=== PATIENT | female | born 1975 | race American Indian/Alaskan Native ===

== ENCOUNTER 2018-10-27 21:01 | Emergency (ER) | payer SELFPAY ==
--- NOTE | 2018-10-27 21:35 | Event Note ---
ED Screening Note ED Screening Note: pt states her blood sugar was reading over 500 states she left her insulin at a rest stop, has not had any medicine since yesterday states she turned around and that the bag was gone also not taking her blood pressure medicine states she feels lightheaded, dizziness BG 480 This initial assessment/diagnostic orders/clinical plan/treatment(s) is/are subject to change based on patients health status, clinical progression and re- assessment by fellow clinical providers in the ED. Further treatment and workup at subsequent clinical providers discretion. Patient/guardian urged not to elope from the ED as their condition may be serious if not clinically assessed and managed. Initial orders include: labs, UA
[2018-10-27 22:31] LABS: Basophils # (Auto) 0.1 K/mm3 (0.0-0.1); Basophils % (Auto) 1.4 % (0.0-1.8); Eosinophils # (Auto) 0.1 K/mm3 (0.0-0.4); Eosinophils % (Auto) 0.7 % (0.0-4.3); Hematocrit 39.4 % (30.3-42.9); Hemoglobin 13.8 gm/dl (10.1-14.3); Lymphocytes # (Auto) 2.7 K/mm3 (1.2-5.4); Mean Corpuscular HGB Conc 35 % (30-34); Mean Corpuscular Volume 85 fl (79-97); Monocytes # (Auto) 0.3 K/mm3 (0.0-0.8); Monocytes % (Auto) 4.3 % (0.0-7.3); Platelet Count 300 K/mm3 (140-440); Red Blood Count 4.61 M/mm3 (3.65-5.03); Red Cell Distribution Width 13.3 % (13.2-15.2)
[2018-10-27 23:00] LABS: Bilirubin,Urine NEG (Negative); Blood,Urine SM (Negative); Color,Urine Straw (Yellow); Mucus,Urine FEW /HPF; Protein,Urine <15 mg/dL mg/dL (Negative); Urobilinogen,Urine < 2.0 mg/dL (<2.0)
[2018-10-27 23:05] LABS: BUN/Creatinine Ratio 9; Blood Urea Nitrogen 6 mg/dL (7-17); Calcium 9.1 mg/dL (8.4-10.2); Hemolysis Index 2
[2018-10-28] MEDS ORDERED: NACL 0.9% 1000 ML 1,000 ML IV ONE (02:54)
[2018-10-28] MEDS ORDERED: NORCO 5/325 PO ONE (02:59)
--- NOTE | 2018-10-28 02:59 | Emergency Department Report ---
ED General Adult HPI - General Chief complaint: High BP Stated complaint: HIGH BLOOD GLUCOSE/BACK/CP Time Seen by Provider: 10/27/18 21:33 Source: patient Mode of arrival: Ambulatory Limitations: No Limitations - History of Present Illness Initial comments: 43 -year-old -[place] female who presents to ED with generalized body ache, hypertension, hyperglycemia, after losing her blood pressure, pain pills and diabetes medications, while traveling. - Related Data Previous Rx's Medication Instructions Recorded Last Taken Type Cyclobenzaprine [Flexeril] 10 mg PO TID PRN #30 tablet 10/28/18 Unknown Rx Insulin NPH Hum/Reg Insulin Hm 30 unit SQ TID 30 Days #1 vial 10/28/18 Unknown Rx [Humulin 70-30 Vial] Lisinopril/Hydrochlorothiazide 1 tab PO QDAY 30 Days #30 tab 10/28/18 Unknown Rx [Zestoretic 20-12.5 mg] Allergies Allergy/AdvReac Type Severity Reaction Status Date / Time ampicillin Allergy Rash Verified 10/27/18 21:38 ibuprofen Allergy Nausea Verified 10/27/18 21:38 sumatriptan [From Imitrex] Allergy Swelling Verified 10/27/18 21:38 ED Review of Systems ROS: Stated complaint: HIGH BLOOD GLUCOSE/BACK/CP Other details as noted in HPI Comment: All other systems reviewed and negative Eyes: denies: eye pain ENT: denies: ear pain Respiratory: denies: cough Cardiovascular: denies: chest pain Musculoskeletal: back pain, myalgia ED Past Medical Hx - Past Medical History Previous Medical History?: Yes Hx Hypertension: Yes Hx Diabetes: Yes Additional medical history: chronic back pain, shoulder dislocation, chronic pain - Surgical History Past Surgical History?: Yes Additional Surgical History: 4 c-sections - Social History Smoking Status: Never Smoker Substance Use Type: None - Medications Home Medications: Home Medications Medication Instructions Recorded Confirmed Last Taken Type Cyclobenzaprine [Flexeril] 10 mg PO TID PRN #30 tablet 10/28/18 Unknown Rx Insulin NPH Hum/Reg Insulin Hm 30 unit SQ TID 30 Days #1 vial 10/28/18 Unknown Rx [Humulin 70-30 Vial] Lisinopril/Hydrochlorothiazide 1 tab PO QDAY 30 Days #30 tab 10/28/18 Unknown Rx [Zestoretic 20-12.5 mg] ED Physical Exam - General Limitations: No Limitations General appearance: alert, in no apparent distress - Head Head exam: Present: atraumatic, normocephalic - Eye Eye exam: Present: normal appearance, PERRL, EOMI Pupils: Present: normal accommodation - Respiratory Respiratory exam: Present: normal lung sounds bilaterally - Cardiovascular Cardiovascular Exam: Present: regular rate, normal rhythm - GI/Abdominal GI/Abdominal exam: Present: soft, normal bowel sounds ED Course Vital Signs 10/27/18 21:35 Temperature 99.3 F Pulse Rate 101 H Respiratory 20 Rate Blood Pressure 162/108 O2 Sat by Pulse 99 Oximetry ED Medical Decision Making - Lab Data Result diagrams: 10/27/18 21:43 10/27/18 21:43 Critical care attestation.: If time is entered above; I have spent that time in minutes in the direct care of this critically ill patient, excluding procedure time. ED Disposition Clinical Impression: Hyperglycemia Hypertension Qualifiers: Hypertension type: essential hypertension Qualified Code(s): I10 - Essential (primary) hypertension Disposition: DC-01 TO HOME OR SELFCARE Is pt being admited?: No Does the pt Need Aspirin: No Condition: Stable Instructions: Diabetes Mellitus Type 2 in Adults (ED), Hypertension (ED) Prescriptions: Cyclobenzaprine [Flexeril] 10 mg PO TID PRN #30 tablet PRN Reason: Muscle Spasm Insulin NPH Hum/Reg Insulin Hm [Humulin 70-30 Vial] 30 unit SQ TID 30 Days #1 vial Lisinopril/Hydrochlorothiazide [Zestoretic 20-12.5 mg] 1 tab PO QDAY 30 Days #30 tab Referrals: JOSÉ ANTONIO MORIN MD [Primary Care Provider] - 3-5 Days
[2018-10-28] MEDS ORDERED: CATAPRES PO ONE (03:05)
[2018-10-28 04:56] VITALS: BP 145/83
== END 2018-10-28 03:50 | disposition home or self-care (01) ==
LOC: ED 21:01
DX: E11.65 Type 2 diabetes mellitus with hyperglycemia (principal); I10 Essential (primary) hypertension; M54.9 Dorsalgia, unspecified; G89.29 Other chronic pain; Z88.1 Allergy status to other antibiotic agents; Z88.8 Allergy status to other drugs, medicaments and biological substances; Z79.4 Long term (current) use of insulin
CPT/HCPCS: 36415; 80048; 81001; 82962; 85025; 99283